=== PATIENT | male | born 1995 | race Two or more races ===

== ENCOUNTER 2023-09-21 08:46 | Emergency (ER) | payer SELFPAY ==
[2023-09-21 09:04] VITALS: BP 123/75; PULSE 88; RESP 18; TEMP 98.6; BMI 26.4
[2023-09-21] MEDS ORDERED: LORATADINE 10 MG TABLET ONE (09:36)
[2023-09-21] MEDS ORDERED: FAMOTIDINE 20 MG TABLET ONE (09:36)
[2023-09-21] MEDS: LORATADINE 10 MG TABLET PO ONE (09:41)
[2023-09-21] MEDS: FAMOTIDINE 20 MG TABLET PO ONE (09:41)
== END 2023-09-21 09:49 | disposition home or self-care (01) ==
LOC: JERFT 08:46
DX: L50.9 Urticaria, unspecified (principal)
CPT/HCPCS: 99283-25

== ENCOUNTER 2023-09-21 23:23 | Emergency (ER) | payer SELFPAY ==
[2023-09-21 23:29] VITALS: BP 132/81; PULSE 90; RESP 18; TEMP 98.2; BMI 20.7
[2023-09-22] MEDS ORDERED: FAMOTIDINE 20 MG TABLET ONE (00:27)
[2023-09-22] MEDS ORDERED: diphenhydrAMINE HCL 25 MG CAPSULE (FP) PO ONE (00:27)
[2023-09-22] MEDS ORDERED: DEXAMETHASONE SOD PHOSPHATE 10 MG/1 ML VIAL ONE (00:28)
[2023-09-22] MEDS: FAMOTIDINE 10 MG TABLET PO ONE (00:31)
[2023-09-22] MEDS: DEXAMETHASONE SOD PHOSPHATE 10 MG/1 ML VIAL IM ONE (00:31)
[2023-09-22] MEDS: diphenhydrAMINE HCL 25 MG CAPSULE (FP) PO ONE (00:31)
[2023-09-22] MEDS ORDERED: EPINEPHrine/PF 1 MG/1 ML (1:1,000) AMPULE ONE (00:54)
[2023-09-22] MEDS: EPINEPHrine 1:1,000 0.3 MG/0.3 ML SYR IM ONE (00:58)
== END 2023-09-22 01:08 | disposition home or self-care (01) ==
LOC: JER 23:23
PROC: 3E023GC Introduction of Other Therapeutic Substance into Muscle, Percutaneous Approach (ICD-10-PCS; principal; 2023-09-22)
PROC: 3E023GC Introduction of Other Therapeutic Substance into Muscle, Percutaneous Approach (ICD-10-PCS; 2023-09-22)
DX: L27.0 Generalized skin eruption due to drugs and medicaments taken internally (principal); T36.95XA Adverse effect of unspecified systemic antibiotic, initial encounter
CPT/HCPCS: 99284-25; J0171; J1100